=== PATIENT | male | born 1945 | race Caucasian/White ===

== ENCOUNTER 2024-11-11 12:59 | Outpatient (RCR) | payer MEDICARE, SELFPAY | END 2025-01-21 18:00 | disposition home or self-care (01) | LOC: CR 12:59 | PROVIDERS: Visit Provider Internal Medicine Cardiovascular Disease | DX: Z48.812 Encounter for surgical aftercare following surgery on the circulatory system (principal); Z95.1 Presence of aortocoronary bypass graft | CPT/HCPCS: 93798 ==